=== PATIENT | female | born 1990 | race Caucasian/White ===

== ENCOUNTER 2019-09-18 12:24 | Outpatient (CLI) | payer BC ==
[2019-09-18] MEDS: LACTATED RINGERS 1,000 ML IV SCH ×3 (13:49→15:25)
[2019-09-18 14:12] LABS: Appearance,Urine Cloudy (Clear); Bacteria,Urine Rare /hpf; Bilirubin,Urine Negative (Negative); Blood,Urine Moderate (Negative); Color,Urine Yellow; Glucose,Urine (UA) Negative (Negative); Ketones,Urine 4+ (Negative); Leukocyte Esterase,Urine Small (Negative); Mucus,Urine Many /hpf; Nitrite,Urine Negative (Negative); PH, Urine 6.5 (5.0-8.0); Protein,Urine 1+ (Negative); RBC,Urine 5 /hpf (0-5); Specific Gravity,Urine 1.033 (1.001-1.035); Squamous Epithelial Cell,Urine 11 /hpf (0-4); WBC,Urine 7 /hpf (0-5)
[2019-09-18 16:58] VITALS: BP 105/78; PULSE 74; RESP 16; TEMP 97.5
--- NOTE | 2019-09-20 11:49 | P.MSEPDOC ---
Presenting Problems - Arrival Data Date of Arrival on Unit: 09/18/19 Time of Arrival on Unit: 12:30 Mode of Transport: Ambulatory - Complaint OB-Reason for Admission/Chief Complaint: Acute Nausea/Vomiting, Other Comment: Diarrhea Medical History - Information : 2 Para: 1 Term: 0 : 0 Abortions: Spontaneous or Elective: 0 Number of Living Children: 1 - Gestational Age Gestational Age by PARTHA (wks/days): 37 Weeks and 5 Days Review of Systems - Review of Systems Constitutional: No problems Breast: No problems ENT: No problems Cardiovascular: No problems Respiratory: No problems Gastrointestinal: Diarrhea Genitourinary: No problems Musculoskeletal: No problems Neurological: No problems Skin: No problems Comment: Nausea/Vomiting/Diarrhea X5 days. Vital Signs - Temperature Temperature: 97.5 F Temperature Source: Temporal Artery Scan - Pulse Pulse Oximetery Pulse Rate: 74 Pulse Assessment Method: Automatic Cuff - Respirations Respiratory Rate: 16 O2 Sat by Pulse Oximetry: 97 - Blood Pressure Right Arm Sitting Blood Pressure: 105/78 Blood Pressure Mean: 87 Blood Pressure Source: Automatic Cuff Medical Screen Scoring (Pre) - Cervical Exam Dilation: 1-3 cm = 1 Membranes: Intact - Uterine Contractions Duration: > 40 seconds = 2 Intensity: N/A - Maternal Vital Signs Maternal Temperature: N/A Maternal Blood Pressure: N/A Signs of Preeclampsia: N/A Maternal Respirations: N/A - Maternal Trauma Maternal Trauma: N/A - Assessment - Baby A Baseline FHR: 130 Heart Rate - NICHD Category: Category I (Normal) = 0 NST: Reactive Position: N/A Station: N/A - Total Score - Baby A Total Score - Baby A: 3 - Total Score - Baby B Total Score - Baby B: 3 - Total Score - Baby C Total Score - Baby C: 3 - Level of Risk - Baby A Level of Risk - Baby A: Low (0-5) - Level of Risk - Baby B Level of Risk - Baby B: Low (0-5) - Level of Risk - Baby C Level of Risk - Baby C: Low (0-5) Physician Notification (Pre) - Physician Notified Physician Notified Date: 09/18/19 Physician Notified Time: 16:28 New Order Received: Yes Medical Screen Scoring (Post) - Cervical Exam Dilation: 1-3 cm = 1 Membranes: Intact - Uterine Contractions Frequency: N/A Duration: > 40 seconds = 2 Intensity: N/A - Maternal Vital Signs Maternal Temperature: N/A Maternal Blood Pressure: N/A Signs of Preeclampsia: N/A Maternal Respirations: N/A - Pain Assessment Pain Location and Character: Back, Abdomen Pain Scale Used: Numeric (1 - 10) Pain Intensity: 5 Pain Description: *Acute, Cramping Pain Radiation Location: no Pain Frequency: Intermittent Pain Duration: 1 Pain Duration Units: Minutes Pain Behavior: None Exhibited Pain Aggravating Factors: Contractions Non-Pharmacological Interventions: Darkened Room, Distraction, Emotional/Spiritual Support, Environmental Control, Heat, Inactivity, Reduce Environmental Stimuli - Maternal Trauma Maternal Trauma: N/A - Assessment - Baby A Heart Rate: 130 Heart Rate - NICHD Category: Category I (Normal) = 0 NST: Reactive Position: N/A Station: N/A - Total Score Total Score - Baby A: 3 Total Score - Baby B: 3 Total Score - Baby C: 3 - Post Treatment Level of Risk Post Treatment Level of Risk - Baby A: Low (0-5) Post Treatment Level of Risk - Baby B: Low (0-5) Post Treatment Level of Risk - Baby C: Low (0-5) Physician Notification (Post) - Physician Notified Physician Notified Date: 09/18/19 Physician Notified Time: 16:28 Physician/Practitioner Notified:: Dr Juju Crabtree Order Received: Yes Disposition - Disposition OB Disposition: Discharge to home, Written follow up instructions reviewed Discharge Date: 09/18/19 Discharge Time: 16:29 I agree with the RN Medical Screening Exam: Yes Risk & Benefit of care provided described in d/c instruction: Yes Diagnosis: DEHYDRATION
== END 2019-09-18 16:29 | disposition home or self-care (01) ==
LOC: FBPOP 12:24
PROVIDERS: ATTEND Obstetrics & Gynecology
DX: O99.89 Other specified diseases and conditions complicating pregnancy, childbirth and the puerperium (principal); E86.0 Dehydration; Z3A.37 37 weeks gestation of pregnancy
CPT/HCPCS: 59025; 81001; 96360; 96361; 96365; 96372; 99214

== ENCOUNTER 2019-09-28 06:11 | Inpatient (IN) | payer BC ==
[2019-09-28] MEDS ORDERED: TERBUTALINE 1 MG/ML VIAL SQ PRN (06:22)
[2019-09-28] MEDS ORDERED: LIDOCAINE 0.5% (PF) 5 MG/ML (50 ML SDV) SQ PRN (06:22)
[2019-09-28] MEDS ORDERED: CARBOPROST TROMETHAMINE 250 MCG/ML 1 ML AMP IM PRN (06:22)
[2019-09-28] MEDS ORDERED: METHYLERGONOVINE 0.2 MG/ML 1 ML AMP IM PRN (06:22)
[2019-09-28] MEDS ORDERED: OXYTOCIN 10 UNIT/ML 1 ML VIAL IM PRN (06:22)
[2019-09-28] MEDS ORDERED: AMPICILLIN 2,000 MG in SODIUM CHLORIDE 0.9% 100 ML IVPB STA (06:22)
--- NOTE | 2019-09-28 06:27 | P.HPOB ---
History of Present Illness H&P Date: 09/28/19 Chief Complaint: Requested induction of labor This patient is a pleasant 28-year-old 2 para 1 female estimated date of confinement 10/05/2019 estimated gestational age 39-0/7 weeks who presents to labor and delivery for requested induction of labor. Patient's care has been uncomplicated. She is uncomfortable at this time and wishes to proceed with induction of labor. Review of Systems Genitourinary: Reports Menstruation: Reports amenorrhea Past Medical History Past Medical History: No Reported History Additional Past Medical History / Comment(s): Patient is a history of migraine headaches. History of Any Multi-Drug Resistant Organisms: None Reported Past Surgical History: No Surgical Hx Reported Past Anesthesia/Blood Transfusion Reactions: No Reported Reaction Past Psychological History: No Psychological Hx Reported Smoking Status: Never smoker Past Alcohol Use History: None Reported Past Drug Use History: None Reported - Past Family History Father Family Medical History: Coronary Artery Disease (CAD) Medications and Allergies Home Medications Medication Instructions Recorded Confirmed Type Pnv No.95/Ferrous Fum/Folic AC 1 each PO DAILY 09/18/19 09/28/19 History [ Multivitamin Tablet] Allergies Allergy/AdvReac Type Severity Reaction Status Date / Time No Known Allergies Allergy Verified 09/28/19 06:19 Exam Intake and Output 09/27/19 09/27/19 09/28/19 14:59 22:59 06:59 Other: Weight 67.585 kg - OBG Physical Exam Abdomen: bowel sounds normal, no diffuse tenderness, no bruit present, no guarding noted, no hepatomegaly, no splenomegaly, no mass Vulva: both: normal Cervix: no lesion (Cervix in the office is 2 cm dilated and effaced.), no discharge Uterus: enlarged (Fundal height is 37 cm) Results blood work shows she is O positive, rubella immune, RPR nonreactive, hepatitis B negative, Glucola was normal, ultrasounds have been normal, group B strep was positive. Assessment and Plan Assessment: This is a pleasant 28-year-old 2 para 1 female 39-0/7 weeks gestation admitted to labor and delivery for requested induction of labor. Patient also has a positive group B strep culture. Plan is antibiotic prophylaxis, induction of labor, and anticipate vaginal delivery. (1) 39 weeks gestation of Current Visit: No Status: Acute Code(s): Z3A.39 - 39 WEEKS GESTATION OF SNOMED Code(s): 00296971 (2) Group B streptococcal carriage complicating Current Visit: No Status: Acute Code(s): O99.820 - STREPTOCOCCUS B CARRIER STATE COMPLICATING SNOMED Code(s): 710869880565171 (3) Elective induction of labor planned Current Visit: No Status: Acute Code(s): GDN1580 - SNOMED Code(s): 898823241
[2019-09-28] MEDS ORDERED: OXYTOCIN 30 UNITS/500 ML NS 30 UNIT in SALINE 1 500ML.BAG IV SCH (06:30)
[2019-09-28] MEDS: LACTATED RINGERS 1,000 ML IV SCH ×2 (06:49→11:58)
[2019-09-28 06:59] LABS: HCT 35.8 % (34.0-46.0); MCH 27.9 pg (25.0-35.0); MCHC 33.6 g/dL (31.0-37.0); MCV 82.9 fL (80.0-100.0); Mean Platelet Volume 9.9; Platelet Count 191 k/uL (150-450); RBC 4.32 m/uL (3.80-5.40); RDW 14.4 % (11.5-15.5); WBC 9.2 k/uL (3.8-10.6)
[2019-09-28 07:33] LABS: Monocytes # (M) 0.55 k/uL (0-1.0); Neutrophils # (M) 7.45 k/uL (1.3-7.7); Neutrophils % (M) 81 %; Nucleated Red Blood Cells 0 /100 WBC (0-0); Total Cells Counted 100
[2019-09-28] MEDS ORDERED: AMPICILLIN 1,000 MG in SODIUM CHLORIDE 0.9% 50 ML IVPB SCH (10:23)
[2019-09-28] MEDS ORDERED: BUTORPHANOL 1 MG/ML 1 ML VIAL IV PRN (11:29)
[2019-09-28] MEDS ORDERED: HYDROCORTISONE 2.5% RECTAL CREAM 30 GM TUBE RECTAL PRN (12:39)
[2019-09-28] MEDS ORDERED: BISACODYL 10 MG SUPP RECTAL PRN (12:39)
[2019-09-28] MEDS ORDERED: diphenhydrAMINE 25 MG CAP PO PRN (12:39)
[2019-09-28] MEDS ORDERED: WITCH HAZEL 1 EACH MED..PAD TOPICAL PRN (12:39)
[2019-09-28] MEDS ORDERED: BENZOCAINE/MENTHOL SPRAY 1 GM/SPRAY AEROSOL TOPICAL PRN (12:39)
[2019-09-28] MEDS ORDERED: OXYTOCIN 20 UNITS/1000 ML NS 1,000 ML IV SCH (12:39)
[2019-09-28] MEDS ORDERED: SIMETHICONE 80 MG CHEWABLE PO PRN (12:39)
[2019-09-28] MEDS ORDERED: ZOLPIDEM 5 MG TAB PO PRN (12:39)
[2019-09-28] MEDS ORDERED: LANOLIN CREAM 5 GM TUBE TOPICAL PRN (12:39)
[2019-09-28] MEDS ORDERED: diphenhydrAMINE 50 MG/ML 1 ML VIAL IVP PRN (12:39)
[2019-09-28] MEDS: SENNOSIDES-DOCUSATE SODIUM 1 EACH TAB PO SCH ×2 (12:46→19:47)
[2019-09-28] MEDS: IBUPROFEN 600 MG TAB PO PRN ×2 (12:48→19:21)
--- NOTE | 2019-09-28 13:37 | P.PROBDLV ---
Vaginal Delivery Note - . Vaginal Delivery Note: Normal vaginal delivery viable female Apgars 9 and 9 delivery time was 1216 hrs. Please see dictated H&P for intimate details of this patient's admission. Brief summary this is a pleasant 28-year-old 2 para 1 female 39 weeks gestation who is admitted to labor and delivery for requested induction of labor. Patient is a positive group B strep culture this reason is given antibiotic prophylaxis and then Pitocin induction of labor. Patient is artificial rupture membranes for clear fluids 2 cm dilated. Patient progresses she does get 1 dose of Stadol and then quickly progresses to complete. Patient pushes the head to the perineum and the posterior perineum is supported we have controlled delivery of infant's head over the intact perineum. Mouth and nares are bulb suctioned. There is no evidence of a nuchal cord. With gentle downward traction we then have deliver the anterior and posterior shoulder and rest this infant's body. This is a vigorous viable female Apgars are 9 and 9 delivery time is 1216 hrs. After delivery of the infant the infant is late on the mother's abdomen. After the cord was done pulsating, the cord is doubly clamped and cut appears to be trivascular. Placenta is then spontaneously delivered intact. Estimated blood loss is approximately 100 mL's. There is a small first-degree posterior laceration was repaired with 3-0 Vicryl in the usual fashion excellent reapproximation is noted. All counts are correct 3. There are no complications. Infant and mother are stable delivery room.
[2019-09-28] MEDS: ACETAMINOPHEN TAB 325 MG TAB PO PRN ×2 (17:20→22:37)
[2019-09-29] MEDS: IBUPROFEN 600 MG TAB PO PRN ×4 (01:20→21:13)
[2019-09-29] MEDS: SENNOSIDES-DOCUSATE SODIUM 1 EACH TAB PO SCH ×2 (07:55→21:12)
[2019-09-29] MEDS: ACETAMINOPHEN TAB 325 MG TAB PO PRN ×2 (11:01→18:29)
[2019-09-30] MEDS: ACETAMINOPHEN TAB 325 MG TAB PO PRN ×2 (00:15→08:48)
[2019-09-30] MEDS: IBUPROFEN 600 MG TAB PO PRN ×2 (06:23→14:01)
[2019-09-30] MEDS: SENNOSIDES-DOCUSATE SODIUM 1 EACH TAB PO SCH (08:47)
[2019-09-30 09:07] VITALS: BP 120/77; PULSE 90; RESP 16; TEMP 98.2
--- NOTE | 2019-09-30 16:05 | PN ---
PROGRESS NOTE Patient is seen and evaluated day 2. She has some burning when she urinates and there was concern over vaginal laceration. She does have an avulsion bilaterally on the right and left-sided periurethrally, but these are not bleeding and will almost certainly heal well on their own. She is encouraged to use Dermoplast spray to limit the pain when she has to go to the bathroom and otherwise we did discuss potential suture for repair but limited benefit would likely happen with doing that and like as noted previously will likely heal fine on its own. All the questions were answered for both she and her and she is going to be going home soon. MMODL / IJN: [id number] /
--- NOTE | 2019-10-03 18:42 | P.DS ---
Providers Date of admission: 09/28/19 06:11 Expected date of discharge: 09/29/19 Attending physician: Charlse Dobbs Primary care physician: Stated None - Discharge Diagnosis(es) (1) 39 weeks gestation of Status: Acute (2) Group B streptococcal carriage complicating Status: Acute (3) Elective induction of labor planned Status: Acute Hospital Course: Please see dictated H&P for intimate details of this patient's admission. In brief summary patient was admitted at 39 wks gestation for elective induction of labor. Patient had an uncomplicated induction and delivery. On PPD#1 patient was felt to be stable for discharge home. Procedures: Induction of labor and normal vaginal delivery. Patient Condition at Discharge: Good Plan - Discharge Summary New Discharge Prescriptions: New Ibuprofen [Motrin] 600 mg PO Q6HR PRN #30 tab PRN Reason: Mild Pain Or Fever >= 100.5 No Action Pnv No.95/Ferrous Fum/Folic AC [ Multivitamin Tablet] 1 each PO DAILY Discharge Medication List Pnv No.95/Ferrous Fum/Folic AC [ Multivitamin Tablet] 1 each PO DAILY 09/18/19 [History] Ibuprofen [Motrin] 600 mg PO Q6HR PRN #30 tab 09/28/19 [Rx] Follow up Appointment(s)/Referral(s): Charles Dobbs MD [STAFF PHYSICIAN] - 6 Weeks Patient Instructions/Handouts: Vaginal Delivery (DC) Activity/Diet/Wound Care/Special Instructions: No intercourse or anything per vagina for 6 weeks. Please call if any fever, chills, excessive vaginal bleeding, and/or abdominal pain. Discharge Disposition: HOME SELF-CARE
== END 2019-09-30 17:21 | disposition home or self-care (01) | DRG 807 ==
LOC: 4FBP 06:11
PROVIDERS: ADMIT Obstetrics & Gynecology; ATTEND Obstetrics & Gynecology
DX: O70.0 First degree perineal laceration during delivery (principal); Z37.0 Single live birth; O99.824 Streptococcus B carrier state complicating childbirth; Z3A.39 39 weeks gestation of pregnancy; Z82.49 Family history of ischemic heart disease and other diseases of the circulatory system
CPT/HCPCS: 85025; 86850; 86900; 86901